=== PATIENT | female | born 2005 | race Hispanic/Latino ===

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

== ENCOUNTER 2023-10-11 00:39 | Emergency (ER) | payer OTHER, SELFPAY ==
[2023-10-11] MEDS ORDERED: predniSONE 20 MG TAB ONE (01:04)
== END 2023-10-11 01:09 | disposition home or self-care (01) ==
LOC: BURERS 00:39
DX: L23.7 Allergic contact dermatitis due to plants, except food (principal)
CPT/HCPCS: 99282; J7512